=== PATIENT | male | born 1940 | race Caucasian/White ===

== ENCOUNTER 2023-07-02 13:36 | Inpatient (IN) | payer OTHER ==
[2023-07-02 13:43] VITALS: BMI 28.4
[2023-07-02] MEDS ORDERED: KETOROLAC TROMETHAMINE 15 MG/ML VIAL ONE (16:58)
[2023-07-02 16:59] LABS: BASO % 0.4 % (0-2.0); EOS % 3.3 % (0-4.5); HEMATOCRIT 46.5 % (35.4-49); HEMOGLOBIN 15.9 GM/dL (11.7-16.9); LYMPH % 15.8 % (8-40); MCHC 34.1 g/dl (32.0-35.9); MEAN PLT VOLUME 8.8 fl (7.5-11.1); MONO % 8.6 % (3.8-10.2); NEUT % 71.9 % (42.8-82.8); PLATELET COUNT 174 10^3/uL (134-434); RBC 5.29 M/mm3 (4.00-5.60); RDW 13.8 % (11.9-15.9); WHITE BLOOD COUNT 10.6 K/mm3 (4.0-10.0)
[2023-07-02] MEDS: SODIUM CHLORIDE 0.9% 500 ML INFUS.BAG IV ONE (17:02)
[2023-07-02] MEDS: KETOROLAC TROMETHAMINE 15 MG/ML VIAL IVPUSH ONE (17:02)
[2023-07-02 17:05] LABS: INR 1.12 (0.83-1.09)
[2023-07-02 17:08] LABS: ACTIVATED PTT 35.5 SECONDS (25.2-36.5)
[2023-07-02 17:10] LABS: PH,URINE 7.5 (5.0-8.0); URINE APPEARANCE CLEAR; URINE BILIRUBIN NEGATIVE (NEGATIVE); URINE COLOR YELLOW; URINE GLUCOSE (UA) NEGATIVE (NEGATIVE); URINE KETONE 1+ (NEGATIVE); URINE LEUK ESTERASE NEGATIVE (NEGATIVE); URINE NITRITE NEGATIVE (NEGATIVE); URINE PROTEIN TRACE (NEGATIVE)
[2023-07-02 17:21] LABS: POTASSIUM 4.8 mmol/L (3.5-5.1)
[2023-07-02 17:23] LABS: ALBUMIN 4.2 g/dl (3.4-5.0); BLOOD UREA NITROGEN 19.7 mg/dL (7-18)
[2023-07-02 17:26] LABS: CREATININE 1.7 mg/dL (0.55-1.3)
[2023-07-02 17:28] LABS: BILIRUBIN,TOTAL 1.7 mg/dL (0.2-1); TOT PROT 7.1 g/dl (6.4-8.2)
[2023-07-02] MEDS ORDERED: ACETAMINOPHEN 1000 MG/100 ML BAG IVPB PRN (21:53)
[2023-07-02] MEDS ORDERED: TAMSULOSIN HCL 0.4 MG CAP ONE (22:56)
[2023-07-02 23:10] VITALS: RESP 18
[2023-07-02] MEDS: TAMSULOSIN HCL 0.4 MG CAP PO SCH (23:10)
[2023-07-02] MEDS: SODIUM CHLORIDE 1,000 ML IV SCH (23:10)
[2023-07-02] MEDS ORDERED: PANTOPRAZOLE 20 MG TABLET PO ONE (23:51)
[2023-07-02] MEDS ORDERED: PANTOPRAZOLE 20 MG TABLET PO SCH (23:56)
[2023-07-03] MEDS: KETOROLAC TROMETHAMINE 15 MG/ML VIAL IVPUSH PRN (03:26)
[2023-07-03] MEDS ORDERED: PROMETHAZINE HCL 25 MG/1 ML VIAL IVPB PRN ×2 (07:25→08:44)
[2023-07-03] MEDS ORDERED: ONDANSETRON 4 MG/2 ML VIAL IVPUSH PRN ×2 (07:25→08:44)
[2023-07-03] MEDS ORDERED: LACTATED RINGERS SOLUTION 1,000 ML IV SCH (07:30)
[2023-07-03] MEDS ORDERED: PROPOFOL 20 ML ONE (07:31)
[2023-07-03] MEDS ORDERED: LIDOCAINE HCL/PF 2% SDV 5ML VIAL ONE (07:35)
[2023-07-03] MEDS: IOHEXOL 300 MG/ML INFUS..BTL IV ONE (07:42)
[2023-07-03] MEDS ORDERED: ONDANSETRON 4 MG/2 ML VIAL ONE (07:50)
[2023-07-03] MEDS ORDERED: DEXAMETHASONE SOD PHOSPHATE 4 MG/1 ML VIAL ONE (07:50)
[2023-07-03] MEDS ORDERED: traMADol HCL 50 MG TABLET PO PRN ×2 (07:51→18:47)
[2023-07-03] MEDS ORDERED: ACETAMINOPHEN 1000 MG/100 ML BAG IVPB PRN (07:58)
[2023-07-03] MEDS ORDERED: KETOROLAC TROMETHAMINE 30 MG/1 ML VIAL ONE (08:03)
[2023-07-03] MEDS ORDERED: PATIENT'S OWN MEDICATION (NON-FORMULARY) (Brimonidine Tartrate/Timolol [Combigan 0.2%-0.5% OU SCH (10:00)
[2023-07-03] MEDS: SODIUM CHLORIDE 1,000 ML IV SCH (10:27)
[2023-07-03] MEDS: PANTOPRAZOLE 20 MG TABLET PO SCH (10:27)
[2023-07-03 12:31] LABS: POTASSIUM 4.3 mmol/L (3.5-5.1)
[2023-07-03 12:42] LABS: BLOOD UREA NITROGEN 22.2 mg/dL (7-18)
[2023-07-03 12:43] LABS: CREATININE 1.8 mg/dL (0.55-1.3); PHOSPHOROUS 2.2 mg/dL (2.5-4.9)
[2023-07-03 12:44] LABS: BILIRUBIN,TOTAL 1.8 mg/dL (0.2-1); TOT PROT 5.8 g/dl (6.4-8.2)
[2023-07-03 12:49] LABS: ALBUMIN 3.2 g/dl (3.4-5.0); CALCIUM 7.6 mg/dL (8.5-10.1)
[2023-07-03] MEDS: NAPH,MB-DB/K PH,MBDB POWDER PACKET PO ONE (13:18)
[2023-07-03 18:17] LABS: BILIRUBIN,DIRECT 0.4 mg/dL (0.0-0.2)
[2023-07-03] MEDS ORDERED: ACETAMINOPHEN 325 MG TABLET (FP) PO PRN (18:47)
[2023-07-03] MEDS: CEFTRIAXONE 1 GM in DEXTROSE 5%-WATER - 50 ML IVPB SCH (20:27)
[2023-07-03] MEDS ORDERED: PATIENT'S OWN MEDICATION (NON-FORMULARY) (Bimatoprost [Lumigan] 7.5 ML Drops) OU SCH (22:00)
[2023-07-03] MEDS ORDERED: PANTOPRAZOLE 20 MG TABLET PO SCH (23:48)
[2023-07-04 08:47] VITALS: BP 145/72; PULSE 75; TEMP 97.6
[2023-07-04] MEDS: DORZOLAMIDE 2% HCL OPHTHALMIC SOLUTION 10 ML BOTTLE OD SCH (09:07)
[2023-07-04] MEDS: TIMOLOL OU SCH (09:56)
[2023-07-04] MEDS: BRIMONIDINE TARTRATE OU SCH (09:56)
[2023-07-04 10:02] LABS: BASO % 0.4 % (0-2.0); EOS % 2.5 % (0-4.5); HEMATOCRIT 41.4 % (35.4-49); HEMOGLOBIN 13.5 GM/dL (11.7-16.9); LYMPH % 23.3 % (8-40); MCH 29.1 pg (25.7-33.7); MCHC 32.5 g/dl (32.0-35.9); MEAN CELL VOLUME 89.4 fl (80-96); MEAN PLT VOLUME 9.4 fl (7.5-11.1); MONO % 6.2 % (3.8-10.2); NEUT % 67.6 % (42.8-82.8); PLATELET COUNT 156 10^3/uL (134-434); RBC 4.63 M/mm3 (4.00-5.60); RDW 13.4 % (11.9-15.9); WHITE BLOOD COUNT 10.9 K/mm3 (4.0-10.0)
[2023-07-04 10:24] LABS: POTASSIUM 3.8 mmol/L (3.5-5.1)
[2023-07-04 10:38] LABS: CALCIUM 8.2 mg/dL (8.5-10.1)
[2023-07-04 10:39] LABS: ALBUMIN 3.1 g/dl (3.4-5.0); BLOOD UREA NITROGEN 22.4 mg/dL (7-18)
[2023-07-04 10:40] LABS: TOT PROT 5.8 g/dl (6.4-8.2)
[2023-07-04 10:42] LABS: CREATININE 1.3 mg/dL (0.55-1.3)
[2023-07-04 10:43] LABS: BILIRUBIN,TOTAL 0.8 mg/dL (0.2-1)
[2023-07-04] MEDS ORDERED: BIMATOPROST OD SCH (22:00)
== END 2023-07-04 13:26 | disposition home or self-care (01) | DRG 660 ==
LOC: JER 13:36 → JERBED 18:46 → J6S 07-03 01:13 → OBSVTOIN 07-03 13:15
PROVIDERS: ADMIT Internal Medicine; ATTEND Internal Medicine
PROC: 0T778DZ Dilation of Left Ureter with Intraluminal Device, Via Natural or Artificial Opening Endoscopic (ICD-10-PCS; 2023-07-03)
PROC: BT1FZZZ Fluoroscopy of Left Kidney, Ureter and Bladder (ICD-10-PCS; principal; 2023-07-03 07:00)
DX: N13.2 Hydronephrosis with renal and ureteral calculous obstruction (principal); J84.9 Interstitial pulmonary disease, unspecified; N17.9 Acute kidney failure, unspecified; K21.9 Gastro-esophageal reflux disease without esophagitis; E78.5 Hyperlipidemia, unspecified; I10 Essential (primary) hypertension; K76.89 Other specified diseases of liver; E83.39 Other disorders of phosphorus metabolism; E80.6 Other disorders of bilirubin metabolism; H40.9 Unspecified glaucoma; M43.17 Spondylolisthesis, lumbosacral region; M47.816 Spondylosis without myelopathy or radiculopathy, lumbar region
CPT/HCPCS: 36415; 74176-TC; 76000-TC-FY; 80053; 81003; 82248; 83735; 84100; 85025; 85610; 85730; 86850; 86900; 86901; 87086; 93005; 93010; 94760; 99285-25; C1758; C2617; G0378

== ENCOUNTER 2023-08-26 03:55 | Day surgery (SDC) | payer OTHER ==
[2023-08-21 14:13] VITALS: BMI 28.7
[2023-08-26 06:15] VITALS: RESP 18
[2023-08-26] MEDS ORDERED: MIDAZOLAM HCL 2 MG/2 ML SINGLE DOSE VIAL ONE (08:13)
[2023-08-26] MEDS ORDERED: FENTANYL CITRATE/PF 50 MCG/ML VIAL ONE (08:13)
[2023-08-26] MEDS ORDERED: ONDANSETRON 4 MG/2 ML VIAL ONE (08:14)
[2023-08-26 12:57] VITALS: BP 138/60; PULSE 65; TEMP 97.8
== END 2023-08-26 11:04 | disposition home or self-care (01) ==
LOC: JASU-SURG 03:55
PROVIDERS: ATTEND Urology
PROC: 0TF4XZZ Fragmentation in Left Kidney Pelvis, External Approach (ICD-10-PCS; principal; 2023-08-26 08:30)
DX: N20.0 Calculus of kidney (principal)

== ENCOUNTER 2023-10-22 03:42 | Day surgery (SDC) | payer OTHER ==
[2023-10-11 17:23] VITALS: BMI 28.7
[2023-10-22 06:20] VITALS: RESP 20
[2023-10-22] MEDS ORDERED: MIDAZOLAM HCL 2 MG/2 ML SINGLE DOSE VIAL ONE (08:02)
[2023-10-22] MEDS ORDERED: FENTANYL CITRATE/PF 50 MCG/ML VIAL ONE (08:02)
[2023-10-22 09:13] VITALS: BP 101/54; PULSE 58; TEMP 97.5
== END 2023-10-22 10:00 | disposition home or self-care (01) ==
LOC: JASU-SURG 03:42
PROVIDERS: ATTEND Urology
PROC: 0TF3XZZ Fragmentation in Right Kidney Pelvis, External Approach (ICD-10-PCS; principal; 2023-10-22 08:00)
DX: N20.0 Calculus of kidney (principal)